=== PATIENT | female | born 1970 | race Caucasian/White ===

== ENCOUNTER 2017-01-11 17:33 | Emergency (ER) | payer BC ==
[~2017-01-11] VITALS: Ht 165.1 cm; Wt 93.8 kg
[~2017-01-11 17:33] MED LIST: AMOXICILLIN500 MG PO; MECLIZINE HCL25 MG PO; NAPROSYN500 MG PO; NASONEX17 GM BOTH NARES; PAXIL10 MG PO; ULTRACET1 TABLET PO; ZOCOR5 MG PO
[2017-01-11 18:22] LABS: POINT-OF-CARE METER ID UU13113800
[2017-01-11 19:25] VITALS: BP 146/77
== END 2017-01-11 19:26 | disposition home or self-care (01) ==
LOC: EME 17:33 → RME 17:33
PROVIDERS: Physician Assistant
DX: F41.1 Generalized anxiety disorder (principal); I10 Essential (primary) hypertension; E78.5 Hyperlipidemia, unspecified; K21.9 Gastro-esophageal reflux disease without esophagitis; F17.200 Nicotine dependence, unspecified, uncomplicated
CPT/HCPCS: 82948; 99281; 99284